=== PATIENT | male | born 1990 | race Two or more races ===

== ENCOUNTER 2024-09-01 16:35 | Emergency (ER) | payer OTHER, SELFPAY ==
[2024-09-01 16:38] VITALS: BP 137/71; PULSE 64; RESP 18; TEMP 36.6; O2SAT 100; BMI 22.3
--- NOTE | 2024-09-01 16:38 | ED.GENADULT ---
HPI - General Adult General Chief complaint: General Medical Stated complaint: mary valladares Time Seen by Provider: 09/01/24 18:23 Source: patient Limitations: no limitations History of Present Illness HPI narrative: 34-year-old male who denies significant past medical history presents for evaluation of episode of generalized weakness. Patient states he had been out at a buffet and just sat down to eat food when he said he reports feeling weak. Patient states his lasted several minutes and then it resolved on its own. Patient came to the Emergency about to have further evaluation. Patient stated been feeling well. He was at home prior to this episode and has no physical complaints. Currently the patient is asymptomatic and has no physical complaints. He did report having some mild nausea but no vomiting. He smokes tobacco. He does report occasional alcohol use admits to having 3 drinks yesterday but denies being intoxicated. Denies any fevers or chills. No abdominal pain. No chest pain or shortness of breath. He does not take any [id number] medications. He is otherwise feeling well. Related Data Allergies Allergy/AdvReac Type Severity Reaction Status Date / Time No Known Allergies Allergy Verified 09/01/24 16:40 Review of Systems Constitutional: Constitutional: Reports as per HPI, Denies chills, Denies fatigue, Denies fever(s) and Denies headache(s) ENT: Denies headache(s) Cardiovascular: Cardiovascular: Denies chest pain and Denies dyspnea Respiratory: Respiratory: Denies cough and Denies dyspnea Gastrointestinal: Gastrointestinal: Denies abdominal pain, Denies constipation, Reports nausea and Denies vomiting Genitourinary: Genitourinary: Denies dysuria Neurologic: Denies headache(s) and Denies focal weakness Endocrine: Endocrine: Denies fatigue [facility] Past Medical History [facility] Narrative: Denies Social History Social History Advance Directives: No Advance Directives Information Provided: No Physical Exam ED Vital Signs: Vital Signs - 24 hr 09/01/24 16:38 Temperature 97.8 F Pulse Rate 64 Respiratory Rate 18 Blood Pressure 137/71 Pulse Oximetry 100 Oxygen Delivery Method Room Air BMI result Body Mass Index 22.3 Const General: healthy appearing, comfortable, no acute distress, alert and awake Nutritional Appearance: well nourished Orientation/consciousness: patient oriented x3 HENMT Head: Yes normocephalic and Yes atraumatic Throat: Yes posterior oropharynx normal Eyes Eyelids: Yes eyelids normal Conjunctivae: conjunctivae normal Sclerae: sclerae normal Corneas: corneas normal Pupils: Equal, round and reactive pupils present EOM: EOMs intact bilaterally Neck Neck: Yes full ROM Resp Effort & Inspection: normal respiratory effort, able to speak in complete sentences, no audible wheezes and not labored Auscultation: clear to auscultation bilaterally Cardio Rate: regular rate Rhythm: regular rhythm GI Inspection: No distended Palpation (GI): Soft to palpation, not firm, nontender, no guarding and not rigid Auscultation: normoactive bowel sounds Skin General skin exam: no rashes or lesions noted and elasticity normal Neuro General: patient oriented x3 Cranial nerves: Yes CN's II-XII intact bilaterally, Yes Equal, round and reactive pupils present and Yes Bilaterally intact EOM present Cognition (Neuro): normal cognition Extrem Other: Moving all extremities well without any obvious deformities Course Course Course Narrative: Medical screening exam performed. Please refer to detailed history, exam, evaluation, and management by primary provider. While at a buffet today, patient reports feeling weak as though he was going to pass out but did not. He also reports having mild nausea but no vomiting. Admits to some alcohol last night both not intoxicated. He smokes tobacco. No sick contacts. Labs and ekg ordered. Reevaluation(s) Reevaluation #1: Patient is resting comfortably at this time. He reports that he is asymptomatic. I have reviewed all labs which not reveal any acute process. He is resting on the exam stretcher, drinking water. He denies any physical complaints at this time and states that he feels well and would like to be discharged home. Time: 18:25 Reevaluation #2: Patient continues to be resting comfortably. He feels comfortable with discharge plan home. Patient is not orthostatic. He has been ambulatory in the emergency department continues to drink water. Patient expresses understanding of all discharge instructions and has no further questions at this time. Time: 18:56 Medical Decision Making Medical Decision Making [facility] Narrative: 34-year-old male with episode of feeling weak, symptoms have since resolved. Check labs, EKG. Differential Diagnosis Differential Diagnoses: The differential diagnosis associated with the presentation includes Vasovagal Dehydration Metabolic abnormality Viral syndrome Lab Data [facility] Lab Attestation statement: I reviewed the patient's lab results. 09/01/24 16:55 09/01/24 16:55 Labs: Lab Results 09/01/24 Range/Units 16:55 WBC 6.5 (4.8-10.8) X10*3/uL RBC 4.75 (4.60-5.80) X10*6/uL Hgb 14.3 (14.0-18.0) g/dl Hct 42.7 (42.0-52.0) % MCV 89.9 (80.0-98.0) fL MCH 30.1 (27.0-33.0) pg MCHC 33.5 (31.0-36.0) g/dl RDW 12.9 (11.0-16.0) % Plt Count 214 (160-400) X10*3/uL MPV 9.3 L (9.4-12.4) fL Immature Gran % (Auto) 0.3 (0.0-0.4) % Neut % (Auto) 62.8 (45-73) % Lymph % (Auto) 25.7 (20-40) % [place] % (Auto) 7.6 (2-11) % Eos % (Auto) 2.2 (0-4) % Baso % (Auto) 1.4 (0-2) % Lymph # (Auto) 1.7 (1.2-4.9) X10*3/uL [place] # (Auto) 0.5 (0.1-1.2) X10*3/uL Eos # (Auto) 0.1 (0.0-0.4) X10*3/uL Baso # (Auto) 0.1 (0.0-0.2) X10*3/uL Abs Immat Gran (auto) 0.02 (0.00-0.03) X10*3/uL Absolute Neuts (auto) 4.1 (2.0-8.3) x10*3/uL Absolute Nucleated RBC 0.000 (0.0-0.012) X10*3/uL Nucleated RBC % (auto) 0.0 (0.0-0.2) /100WBC Sodium 143 (135-145) mmol/L Potassium 4.3 (3.3-5.1) mmol/L Chloride 111 H (96-108) mmol/L Carbon Dioxide 27 (22-29) mmol/L Anion Gap 9 L (12-20) BUN 15 (9-16) mg/dL Creatinine 1.01 (0.5-1.4) mg/dL Estim Creat Clear Calc 101.8 Estimated GFR > 60 Random Glucose 83 (60-115) mg/dL Calcium 9.2 (8.4-10.2) mg/dL Total Bilirubin 0.5 (0.0-1.0) mg/dL AST 28 (5-37) U/L ALT 21 (0-40) U/L Alkaline Phosphatase 70 (39-117) U/L Total Protein 7.3 (6.5-8.0) g/dL Albumin 4.5 (3.5-5.0) g/dL Lipase 12 (8-78) U/L Independent Interpretation I performed an independent interpretation of an: EKG Discharge Plan Discharge Clinical Impression: Weakness, Nausea Patient Disposition: Home, Self-Care Instructions: Weakness (ED) Additional Instructions: As discussed, rest. Avoid strenuous activity. Drink plenty of fluids. Watch for any worsening of symptoms, development of pain, increased weakness, feeling as though you may pass out, or any other concern return immediately to the emergency department. Follow-up with your primary care provider. Call this week to schedule a follow-up appointment. Return to the emergency department if you have any worsening of symptoms, or any concerns. Get well soon! Print Language: Bahamian
--- NOTE | 2024-09-01 16:43 | ECG_ITS ---
Test Reason : CHEST PAIN Blood Pressure : */* mmHG Vent. Rate : 65 BPM Atrial Rate : 65 BPM P-R Int : 154 ms QRS Dur : 108 ms QT Int : 388 ms P-R-T Axes : 66 94 45 degrees QTcB Int : 403 ms Sinus rhythm with Premature atrial complexes with Aberrant conduction Rightward axis Incomplete right bundle branch block Borderline ECG No previous ECGs available Referred By: Rodríguez Forte Electronically Signed By: ADEEL FELTON MD
[2024-09-01 16:58] LABS: MANUAL DIFF FLAG NO
[2024-09-01 16:59] LABS: Basophils Absolute Auto 0.1 X10*3/uL (0.0-0.2); Basophils Percent Auto 1.4 % (0-2); Eosinophils Absolute Auto 0.1 X10*3/uL (0.0-0.4); Eosinophils Percent Auto 2.2 % (0-4); Hematocrit 42.7 % (42.0-52.0); Hemoglobin 14.3 g/dl (14.0-18.0); Imm Gran Abs Auto 0.02 X10*3/uL (0.00-0.03); Imm Gran Pct Auto 0.3 % (0.0-0.4); Lymphocytes Absolute Auto 1.7 X10*3/uL (1.2-4.9); Lymphocytes Percent Auto 25.7 % (20-40); Mean Corpuscular HGB Conc 33.5 g/dl (31.0-36.0); Mean Corpuscular Hemoglobin 30.1 pg (27.0-33.0); Mean Corpuscular Volume 89.9 fL (80.0-98.0); Mean Platelet Volume 9.3 fL (9.4-12.4); Monocytes Absolute Auto 0.5 X10*3/uL (0.1-1.2); Monocytes Percent Auto 7.6 % (2-11); Neutrophils Absolute Auto 4.1 x10*3/uL (2.0-8.3); Neutrophils Percent Auto 62.8 % (45-73); Platelet Count 214 X10*3/uL (160-400); Red Blood Count 4.75 X10*6/uL (4.60-5.80); Red Cell Distribution Width 12.9 % (11.0-16.0); White Blood Count 6.5 X10*3/uL (4.8-10.8)
[2024-09-01 17:16] LABS: Alanine Aminotransferase 21 U/L (0-40); Albumin Level 4.5 g/dL (3.5-5.0); Alkaline Phosphatase 70 U/L (39-117); Anion Gap 9 (12-20); Aspartate Amino Transferase 28 U/L (5-37); Bilirubin Total 0.5 mg/dL (0.0-1.0); Blood Urea Nitrogen 15 mg/dL (9-16); Calcium 9.2 mg/dL (8.4-10.2); Carbon Dioxide 27 mmol/L (22-29); Chloride 111 mmol/L (96-108); Creatinine Clr Calc Pharmacy 101.8; Estimated Glomerular Filt Rate > 60; Glucose Random 83 mg/dL (60-115); Lipase 12 U/L (8-78); Potassium 4.3 mmol/L (3.3-5.1); Sodium 143 mmol/L (135-145); Total Protein 7.3 g/dL (6.5-8.0)
[2024-09-01 18:52] VITALS: BP 119/68; PULSE 58
[2024-09-01 18:53] VITALS: BP 124/76; PULSE 61
[2024-09-01 18:55] VITALS: BP 131/76; PULSE 57
[2024-09-01 19:10] VITALS: BP 131/76; PULSE 57; RESP 16; TEMP 36.6; O2SAT 100
== END 2024-09-01 19:11 | disposition home or self-care (01) ==
PROVIDERS: Physician Assistant; Emergency Provider Emergency Medicine; PCP Internal Medicine
DX: R53.1 Weakness (principal); R11.0 Nausea; R07.89 Other chest pain; Z79.899 Other long term (current) drug therapy
CPT/HCPCS: 36415; 80053; 83690; 85025; 93005; 99283

== ENCOUNTER → 2024-09-01 16:43 | Outpatient (BNV) | payer SELFPAY | PROVIDERS: Emergency Provider Emergency Medicine; PCP Internal Medicine; Visit Provider Internal Medicine Cardiovascular Disease | DX: I49.1 Atrial premature depolarization (principal); I45.10 Unspecified right bundle-branch block | CPT/HCPCS: 93010 ==